=== PATIENT | male | born 1960 | race Caucasian/White ===

== ENCOUNTER 2019-01-04 12:43 | Emergency (ER) | payer BC, OTHER ==
[~2019-01-04] VITALS: Ht 175 cm; Wt 92.0 kg
[2019-01-04 13:17] LABS: BASOPHILS % (AUTO) 1 % (0-10); EOSINOPHILS % (AUTO) 1 % (0-10); HEMATOCRIT 44 % (40-54); HEMOGLOBIN 15.1 G/DL (13.3-17.7); LYMPHOCYTES % (AUTO) 21 % (12-44); MEAN CORPUSCULAR HEMOGLOBIN 29 PG (25-34); MEAN CORPUSCULAR HGB CONC 34 G/DL (32-36); MEAN CORPUSCULAR VOLUME 84 FL (80-99); MEAN PLATELET VOLUME 8.8 FL (7.4-10.4); MONOCYTES % (AUTO) 5 % (0-12); NEUTROPHILS % (AUTO) 72 % (42-75); PLATELET COUNT 206 10^3/uL (130-400); RED CELL DISTRIBUTION WIDTH 13.8 % (10.0-14.5); WHITE BLOOD COUNT 8.8 10^3/uL (4.3-11.0)
[2019-01-04 13:18] LABS: BASOPHILS # (AUTO) 0.1 10^3/uL (0.0-0.1); EOSINOPHILS # (AUTO) 0.1 10^3/uL (0.0-0.3); LYMPHOCYTES # (AUTO) 1.9 X 10^3 (1.0-4.0); MONOCYTES # (AUTO) 0.5 X 10^3 (0.0-1.0); NEUTROPHILS # (AUTO) 6.3 X 10^3 (1.8-7.8)
[2019-01-04 13:22] LABS: INR 0.9 (0.8-1.4)
--- NOTE | 2019-01-04 13:29 | Diagnostic Imaging Report ---
EXAMINATION: PA and lateral chest at 12:52 p.m. INDICATION: Chest pain. COMPARISON: There are no prior studies available for comparison. FINDINGS: The heart size is within normal limits. The lungs are clear. There is no evidence for failure, pneumonia, or for a pleural effusion. The mediastinum is not widened. The osseous structures are intact. External cardiac monitoring electrodes are noted. IMPRESSION: There is no evidence for an acute cardiopulmonary abnormality. Dictated by: Dictated on workstation # [id number]
--- NOTE | 2019-01-04 13:31 | ED Cardiac General ---
History of Present Illness General Chief Complaint: Chest Pain Stated Complaint: CHEST PAIN Nursing Triage Note: PT REPORTS AT ABOUT 1100 HE STARTED HAVING CHEST PAIN AFTER EATING. HE WAITED AWHILE THEN STARTED HAVING LEFT ARM NUMBNESS. History of Present Illness Date Seen by Provider: Jan 04, 2019 Time Seen by Provider: 12:49 Initial Comments The patient is a 58-year-old male with a history of hypertension and a long history of 2 pack a day tobacco use. He has no known coronary artery or other cardiac disease. Patient presents with concern for acute onset of left sided sternal chest discomfort with radiation down into the left upper quadrant of the abdomen, all with onset at 11 AM, about 1.5 hours prior to arrival. Discomfort was sudden in onset and quite severe and, contrary to the triage note, was not associated with any food. Severity was 10 out of 10 initially. Patient reports associated shortness of breath, mild. Symptoms resolved entirely after about 20 minutes before reoccurring about half an hour prior to arrival, again lasting for about 20 minutes before resolving. At the present time the patient is pain free, has no symptoms and feels well. During the second episode the patient noticed some associated transient left forearm and hand numbness which went away as soon as the pain did. Patient has never had similar symptoms previously. He states he felt well before onset of symptoms. No associated fevers, nausea or vomiting, cold sweats or chills, right-sided or lower abdominal pain, flank pain, back pain, dysuria or hematuria, changes in bowel habits. Allergies and Home Medications Allergies Coded Allergies: No Known Drug Allergies (Unverified , 01/04/19) Patient Home Medication List Home Medication List Reviewed: Yes Review of Systems Review of Systems Constitutional: see HPI All Other Systems Reviewed Negative Unless Noted: Yes (Negative excepted noted.) Past Rlcduax-Hfqukh-Jclqpm Hx Past Med/Social Hx: Reviewed Nursing Past Med/Soc Hx Patient Social History Alcohol Use: Denies Use Recreational Drug Use: No Smoking Status: Current Everyday Smoker Type Used: Cigarettes 2nd Hand Smoke Exposure: Yes Recent Foreign Travel: No Contact w/Someone Who Travel: No Recent Infectious Disease Expo: No Physical Abuse: No Sexual Abuse: No Mistreated: No Fear: No Family Medical History Reviewed Nursing Family Hx Physical Exam Vital Signs Vital Signs - First Documented 01/04/19 13:16 Temp 37.3 Pulse 81 Resp 21 B/P (MAP) 133/74 (93) O2 Delivery Room Air Capillary Refill : Less Than 3 Seconds Height, Weight, BMI Height: '" Weight: lbs. oz. kg; 30.00 BMI Method: General Appearance: No Apparent Distress Other comments This is an older male appearing nontoxic and in no acute distress. Head is normocephalic and atraumatic. Neck is supple and nontender. Oropharynx is moist. Lungs are clear to auscultation in all stations. There is a normal S1 and S2 without rubs or gallops and capillary refill is appropriate, less than 2 seconds globally. Abdomen is soft, nontender and nondistended. There are no pulsatile masses noted to the abdomen. Skin is warm and dry without cyanosis, clubbing or edema. Psychiatrically, the patient does straights appropriate mood and affect and is alert. Examination of the bilateral upper and lower extrem ities reveals equal and strong 2+ peripheral pulses to all 4 extremities distally. Bilateral upper and lower extremities are neurovascularly intact. From a neurologic standpoint, cranial nerves II through XII are intact and no lateralizing deficits are noted. Speech is normal. Language is normal. Coordination is normal. There is no dysmetria with ehetrb-ni-incv or uvlm-cy-sass bilaterally. Strength is 5 out of 5 in all joints of bilateral upper and lower extremities. Sensation is intact light touch in bilateral upper and lower extremities. Patient ambulates with a narrow, steady gait in the emergency department. He is alert and oriented 4. Progress/Results/Core Measures Results/Orders Lab Results Laboratory Tests Test 01/04/19 12:55 01/04/19 15:03 Range/Units White Blood Count 8.8 4.3-11.0 10^3/uL Red Blood Count 5.27 4.35-5.85 10^6/uL Hemoglobin 15.1 13.3-17.7 G/DL Hematocrit 44 40-54 % Mean Corpuscular Volume 84 80-99 FL Mean Corpuscular Hemoglobin 29 25-34 PG Mean Corpuscular Hemoglobin Concent 34 32-36 G/DL Red Cell Distribution Width 13.8 10.0-14.5 % Platelet Count 206 130-400 10^3/uL Mean Platelet Volume 8.8 7.4-10.4 FL Neutrophils (%) (Auto) 72 42-75 % Lymphocytes (%) (Auto) 21 12-44 % Monocytes (%) (Auto) 5 0-12 % Eosinophils (%) (Auto) 1 0-10 % Basophils (%) (Auto) 1 0-10 % Neutrophils # (Auto) 6.3 1.8-7.8 X 10^3 Lymphocytes # (Auto) 1.9 1.0-4.0 X 10^3 Monocytes # (Auto) 0.5 0.0-1.0 X 10^3 Eosinophils # (Auto) 0.1 0.0-0.3 10^3/uL Basophils # (Auto) 0.1 0.0-0.1 10^3/uL Prothrombin Time 13.0 12.2-14.7 SEC INR Comment 0.9 0.8-1.4 Activated Partial Thromboplast Time 30 24-35 SEC Sodium Level 137 135-145 MMOL/L Potassium Level 3.7 3.6-5.0 MMOL/L Chloride Level 99 98-107 MMOL/L Carbon Dioxide Level 26 21-32 MMOL/L Anion Gap 12 5-14 MMOL/L Blood Urea Nitrogen 13 7-18 MG/DL Creatinine 0.94 0.60-1.30 MG/DL Estimat Glomerular Filtration Rate > 60 BUN/Creatinine Ratio 14 Glucose Level 143 H 70-105 MG/DL Calcium Level 9.1 8.5-10.1 MG/DL Corrected Calcium 9.1 8.5-10.1 MG/DL Total Bilirubin 0.3 0.1-1.0 MG/DL Aspartate Amino Transf (AST/SGOT) 13 5-34 U/L Alanine Aminotransferase (ALT/SGPT) 15 0-55 U/L Alkaline Phosphatase 85 40-136 U/L Troponin I < 0.30 < 0.30 <0.30 NG/ML Pro-B-Type Natriuretic Peptide 87.2 H <75.0 PG/ML Total Protein 6.5 6.4-8.2 GM/DL Albumin 4.0 3.2-4.5 GM/DL Lipase 30 8-78 U/L My Orders Orders - COLLIN POSEY MD Cbc With Automated Diff (01/04/19 13:03) Comprehensive Metabolic Panel (01/04/19 13:03) Troponin I Fs (01/04/19 13:03) Ekg Tracing (01/04/19 13:03) Chest Pa/Lat (2 View) (01/04/19 13:03) Probnp Fs (01/04/19 13:03) Protime With Inr (01/04/19 13:03) Partial Thromboplastin Time (01/04/19 13:03) Lipase (01/04/19 13:03) Ua Culture If Indicated (01/04/19 13:03) Aspirin Chewable Tablet (Baby Aspirin Ch (01/04/19 13:45) Ct Angio Chest/Abd/Pelv W (01/04/19 14:02) Iohexol Injection (Omnipaque 350 Mg/Ml 1 (01/04/19 14:15) Received Contrast (Hold Metformin- Contr (01/04/19 14:15) Sodium Chloride Flush (Catheter Flush Sy (01/04/19 14:15) Ns (Ivpb) (Sodium Chloride 0.9% Ivpb Bag (01/04/19 14:15) Troponin I Fs (01/04/19 15:00) Ekg Tracing (01/04/19 15:00) Medications Given in ED Current Medications Medications Dose Ordered Sig/Tammy Route Start Time Stop Time Status Last Admin Dose Admin Iohexol 125 ml ONCE ONCE IV 01/04/19 14:15 01/04/19 14:17 DC 01/04/19 14:38 125 ML Sodium Chloride 10 ml NEEDED PRN IV 01/04/19 14:15 01/04/19 14:38 10 ML Sodium Chloride 100 ml ONCE ONCE IV 01/04/19 14:15 01/04/19 14:17 DC 01/04/19 14:38 100 ML Vital Signs/I&O 01/04/19 01/04/19 13:16 13:23 Temp 37.3 Pulse 81 Resp 21 B/P (MAP) 133/74 (93) O2 Delivery Room Air Room Air Blood Pressure Mean: 93 Progress Progress Note : Time: 13:33 Progress Note Concerning episode of quite severe sharp left-sided sternal chest discomfort radiating down to left upper quadrant of the abdomen, with associated transient left hand and forearm numbness. Clinical examination reassuring and neurologic examination nonfocal and vital signs are appropriate here in the emergency department. 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 HEART score 2. He has risk factors both for ACS, considered less likely given atypical nature of his discomfort, as well as pulmonary embolism and even dissection. We'll check labs and EKG and chest x-ray to begin with and will given aspirin. We'll consider advanced imaging to facilitate disposition. Update 1529: The patient is resting comfortably in no distress upon reassessment. Vital signs remained appropriate. He has not had any recurrence of his presenting discomfort. Labs, EKG and CT angiography without evidence of acute process. Very mild BNP elevation without hypoxia or evidence of any fluid overload. In view of resolution of presenting symptoms and no recurrence, reassuring workup thus far and HEART score of 2, we will obtain a delta troponin for disposition. If repeat troponin is reassuring, plan will be for discharge home to follow up very closely with primary care in the next 1-2 days. The sade ent is also counseled to follow up closely with cardiology in the clinic, ideally within the next 72 hours, as he may benefit from risk stratification testing. He and his understand that if he feels worse instead of better, develops recurrent or worsening symptoms or any other new symptoms of concern that he will need to return immediately to this emergency department or to the closest emergency department to him for reevaluation. All questions are answered. Update 1546: repeat troponin negative and patient remains asymptomatic. He feels well and would like to go home. We will proceed with discharge home at this time as per plan above. Comment Sinus rhythm, rate 84, no acute ST elevation or depression, CA 171, QRS 91, QTC 432, EP interpretation. Diagnostic Imaging Comments CT ANGIO CHEST/ABD/PELV W PROCEDURE: CT angiography of the chest with contrast and CT abdomen and pelvis with contrast. TECHNIQUE: Multiple contiguous axial images were obtained through the chest, abdomen and pelvis after administration of intravenous contrast. 3D MIP reconstructed CT angiography acquisitions of the aorta were then performed. Auto Exposure Controls were utilized during the CT exam to meet ALARA standards for radiation dose reduction. INDICATION: Left-sided chest pain, abdominal pain, hand numbness. The patient has a history of hypertension. FINDINGS: Globally, there was no acute thoracic, abdominal or pelvic arterial injury, dissection, mural hemorrhage, rupture, hemorrhage or contrast extravasation CT chest: The thoracic aorta is patent and nonaneurysmal. There is no mural hemorrhage, dissection, aneurysm, stenosis or occlusion. The pulmonary arterial branches are widely patent and well opacified. No PE or filling defect. There is no pleural or pericardial effusion. The lungs are clear, no mass or infiltrate. No acute soft tissue or osseous chest wall pathology. No lymphadenopathy. CT abdomen/pelvis: The abdominal aorta is patent and nonaneurysmal. No dissection, aneurysm or rupture. There are gallstones present without secondary findings of acute cholecystitis no pericholecystic edema. The gallbladder is nondilated. There is no pathological distention of bile ducts. The spleen, adrenals and pancreas are nonacute. A few splenules are incidentally noted. The adrenals are negative. The kidneys are unobstructed and normal. There is no bowel obstruction. There is no ascites, abscess, hematoma or other fluid collection. No pneumatosis or free gas. Prostate seminal vesicles and urinary bladder are unremarkable. No mesenteric or retroperitoneal lymphadenopathy. There is iliac atherosclerotic vascular disease without occlusive segment. IMPRESSION: 1. No acute arterial pathology at today's study. 2. Chest: Patent unremarkable thoracic aorta, negative for PE. No acute abnormality identified. No evidence for mass. 3. Abdomen/pelvis: Nonaneurysmal atherosclerosis with no ischemia, hemorrhage, aneurysm, rupture or acute findings. No bowel, biliary or urinary tract obstruction. Cholelithiasis noted. Dictated on workstation # [id number] Departure Impression Primary Impression: Other chest pain Additional Impression: Left upper quadrant pain Disposition: 01 HOME, SELF-CARE Condition: Improved Departure-Patient Inst. Patient Instructions: Chest Pain (DC) Add. Discharge Instructions: Follow up with your primary care physician in the next 1-2 days as discussed. You should also seek followup with a wrap knitting machine operator convenient to you in the next 3 days. Call for appointments this afternoon or tomorrow morning. Return as discussed for recurrent or worsened symptoms or for other new and concerning symptoms. COLLIN POSEY MD Jan 04, 2019 13:31
[2019-01-04] MEDS ORDERED: ASPIRIN 81 MG CHEW (CHILDREN'S ASA) PO ONE (13:45)
[2019-01-04 14:00] LABS: ALANINE AMINOTRANSFERASE 15 U/L (0-55); ALKALINE PHOSPHATASE 85 U/L (40-136); BILIRUBIN,TOTAL 0.3 MG/DL (0.1-1.0); BUN/CREATININE RATIO 14; CALCIUM 9.1 MG/DL (8.5-10.1); CARBON DIOXIDE 26 MMOL/L (21-32); CHLORIDE 99 MMOL/L (98-107); CREATININE SERUM 0.94 MG/DL (0.60-1.30); GFR ESTIMATED > 60; GLUCOSE 143 MG/DL (70-105); POTASSIUM 3.7 MMOL/L (3.6-5.0); SODIUM 137 MMOL/L (135-145)
[2019-01-04 14:01] LABS: LIPASE 30 U/L (8-78); TOTAL PROTEIN 6.5 GM/DL (6.4-8.2)
--- NOTE | 2019-01-04 14:08 | NUR ---
PT RECEIVED 324 MG OF ASPIRIN BY [facility] ACTIVE DIRECTORY SYSTEMS ADMINISTRATOR.
[2019-01-04] MEDS ORDERED: NS 100 ML (IVPB) BAG IV ONE (14:15)
[2019-01-04] MEDS ORDERED: HOLD METFORMIN - RECEIVED CONTRAST 20 ML VIAL IV SCH (14:15)
[2019-01-04] MEDS ORDERED: IOHEXOL 350 MG/ML 150 ML (OMNIPAQUE 350) VIAL IV ONE (14:15)
[2019-01-04] MEDS ORDERED: CATHETER FLUSH 10 ML SYR IV PRN (14:15)
--- NOTE | 2019-01-04 15:21 | Diagnostic Imaging Report ---
PROCEDURE: CT angiography of the chest with contrast and CT abdomen and pelvis with contrast. TECHNIQUE: Multiple contiguous axial images were obtained through the chest, abdomen and pelvis after administration of intravenous contrast. 3D MIP reconstructed CT angiography acquisitions of the aorta were then performed. Auto Exposure Controls were utilized during the CT exam to meet ALARA standards for radiation dose reduction. INDICATION: Left-sided chest pain, abdominal pain, hand numbness. The patient has a history of hypertension. FINDINGS: Globally, there was no acute thoracic, abdominal or pelvic arterial injury, dissection, mural hemorrhage, rupture, hemorrhage or contrast extravasation CT chest: The thoracic aorta is patent and nonaneurysmal. There is no mural hemorrhage, dissection, aneurysm, stenosis or occlusion. The pulmonary arterial branches are widely patent and well opacified. No PE or filling defect. There is no pleural or pericardial effusion. The lungs are clear, no mass or infiltrate. No acute soft tissue or osseous chest wall pathology. No lymphadenopathy. CT abdomen/pelvis: The abdominal aorta is patent and nonaneurysmal. No dissection, aneurysm or rupture. There are gallstones present without secondary findings of acute cholecystitis no pericholecystic edema. The gallbladder is nondilated. There is no pathological distention of bile ducts. The spleen, adrenals and pancreas are nonacute. A few splenules are incidentally noted. The adrenals are negative. The kidneys are unobstructed and normal. There is no bowel obstruction. There is no ascites, abscess, hematoma or other fluid collection. No pneumatosis or free gas. Prostate seminal vesicles and urinary bladder are unremarkable. No mesenteric or retroperitoneal lymphadenopathy. There is iliac atherosclerotic vascular disease without occlusive segment. IMPRESSION: 1. No acute arterial pathology at today's study. 2. Chest: Patent unremarkable thoracic aorta, negative for PE. No acute abnormality identified. No evidence for mass. 3. Abdomen/pelvis: Nonaneurysmal atherosclerosis with no ischemia, hemorrhage, aneurysm, rupture or acute findings. No bowel, biliary or urinary tract obstruction. Cholelithiasis noted. Dictated by: Dictated on workstation # [id number]
[2019-01-04 16:00] VITALS: BP 124/59
== END 2019-01-04 16:00 | disposition home or self-care (01) ==
LOC: ER FS 12:45
DX: R07.89 Other chest pain (principal); R10.12 Left upper quadrant pain; I10 Essential (primary) hypertension; F17.210 Nicotine dependence, cigarettes, uncomplicated
CPT/HCPCS: 36415; 71046; 71275; 74174; 80053; 83690; 83880; 84484; 85025; 85610; 85730; 93005